=== PATIENT | female | born 1995 | race Caucasian/White ===

== ENCOUNTER 2018-11-22 15:22 | Emergency (ER) | payer MEDICAID ==
[~2018-11-22] VITALS: Ht 167.6 cm; Wt 84.4 kg
[2018-11-22 15:40] VITALS: BP 135/62
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
[2018-11-22] MEDS ORDERED: IBUPROFEN 800 MG TAB PO ONE (16:30)
[2018-11-22 18:02] VITALS: BP 131/64
== END 2018-11-22 18:03 | disposition home or self-care (01) ==
LOC: MED 15:22
DX: S16.1XXA Strain of muscle, fascia and tendon at neck level, initial encounter (principal); V89.2XXA Person injured in unspecified motor-vehicle accident, traffic, initial encounter; Y93.89 Activity, other specified; Y92.411 Interstate highway as the place of occurrence of the external cause; Y99.8 Other external cause status
CPT/HCPCS: 72040; 81025; 99283